=== PATIENT | male | born 1940 | race Caucasian/White ===

== ENCOUNTER → 2017-11-04 | Outpatient (CLI) | payer OTHER ==
[~2017-11-04] MED LIST: ADULT LOW DOSE81 MG; ADULT LOW DOSE81 MG PO; ALBUTEROL SULF8.5 GM INH; ANORO ELLIPTA1 EACH IH; ASPIR-TRIN325 MG PO; ASPIRIN325 PO; AZITHROMYCIN 2250 MG PO; CADUET 10 MG-21 EACH PO; CEFDINIR PO; CENTRUM SILVER1 EAC1 PO; CHERACOL COUGH120 ML PO; COENZYME Q1030 MG PO; COQ-10100 MG PO; DIOVAN HCT 1601 EACH PO; DUONEB 2.5-0.5 M3 ML INH; EFFIENT10 MG PO; FISH OIL 1,001000 M2 PO; FISHOIL PO; HYOSCYAMINE0.375 MG PO; KLOR-CON 1010 MEQ PO; LASIX 20 MG TAB20 MG PO; LEVAQUIN 500 M500 M2 PO; LEVOTHYROXIN0.112 M1; LEVOTHYROXIN0.125 M1 PO; LIDODERM 5%1 PATC1 TOP; LIVALO4 MG PO; LOSARTAN-HCTZ1 EAC2 PO; LYRICA 50 MG50 MG PO; MUCINEX TA600 MG/TA2 PO; NICOTINE TRANSD21 M1 TD; NORCO 5-325 TA1 EACH PO; NORVASC5 MG PO; OMEGA-31000 M1 PO; OMEPRAZOLE20 MG PO; PERCOCET 10-321 EACH PO; PERCOCET PO; PREDNISONE 10 M10 MG PO; PRILOSEC20 MG PO; PROMETHAZINE/C118 ML PO; ROXICODONE5 M2 PO; SINGULAIR 10 MG10 MG PO; SINGULAIR INH; SPIRIVA; SYNTHROID88 MCG PO; TRAZODONE HCL50 MG PO; UNICOMPLEX M TA1 TA1 PO; VITAMINC500 PO; VOLTAREN GEL 1100 G1 TOP
== END ==
LOC: RAD 08:53
DX: J18.9 Pneumonia, unspecified organism (principal); J44.9 Chronic obstructive pulmonary disease, unspecified; I10 Essential (primary) hypertension; I25.10 Atherosclerotic heart disease of native coronary artery without angina pectoris; E78.5 Hyperlipidemia, unspecified

== ENCOUNTER → 2019-09-10 | Outpatient (CLI) | payer OTHER | LOC: RAD 08:15 | DX: J43.0 Unilateral pulmonary emphysema [MacLeod's syndrome] (principal); J84.9 Interstitial pulmonary disease, unspecified ==

== ENCOUNTER → 2019-09-16 | Outpatient (CLI) | payer OTHER | LOC: CAT 07:35 | DX: K44.9 Diaphragmatic hernia without obstruction or gangrene (principal); J84.9 Interstitial pulmonary disease, unspecified; J43.8 Other emphysema; R91.8 Other nonspecific abnormal finding of lung field; K57.30 Diverticulosis of large intestine without perforation or abscess without bleeding; K80.20 Calculus of gallbladder without cholecystitis without obstruction ==

== ENCOUNTER → 2019-12-23 | Outpatient (CLI) | payer OTHER | LOC: SJCVCIMAG 08:07 | PROVIDERS: ATTEND Internal Medicine Cardiovascular Disease | DX: I65.23 Occlusion and stenosis of bilateral carotid arteries (principal); I73.9 Peripheral vascular disease, unspecified; F17.200 Nicotine dependence, unspecified, uncomplicated; Z95.820 Peripheral vascular angioplasty status with implants and grafts ==

== ENCOUNTER → 2019-12-24 | Outpatient (CLI) | payer OTHER | LOC: CAT 07:52 | PROVIDERS: ATTEND Internal Medicine | DX: J43.9 Emphysema, unspecified (principal); I70.0 Atherosclerosis of aorta; I25.10 Atherosclerotic heart disease of native coronary artery without angina pectoris; R91.8 Other nonspecific abnormal finding of lung field; J84.10 Pulmonary fibrosis, unspecified; K57.30 Diverticulosis of large intestine without perforation or abscess without bleeding; K44.9 Diaphragmatic hernia without obstruction or gangrene; J84.9 Interstitial pulmonary disease, unspecified ==

== ENCOUNTER → 2020-02-25 | Outpatient (CLI) | payer OTHER | LOC: SJCVCIMAG 07:39 | PROVIDERS: ATTEND Internal Medicine Cardiovascular Disease | DX: I25.10 Atherosclerotic heart disease of native coronary artery without angina pectoris (principal); I49.3 Ventricular premature depolarization; I51.7 Cardiomegaly; J44.9 Chronic obstructive pulmonary disease, unspecified; Z79.899 Other long term (current) drug therapy ==

== ENCOUNTER → 2020-08-26 | Outpatient (CLI) | payer OTHER | LOC: SJCVC 10:18 | PROVIDERS: ATTEND Internal Medicine Cardiovascular Disease | DX: I25.10 Atherosclerotic heart disease of native coronary artery without angina pectoris (principal); I10 Essential (primary) hypertension; E78.00 Pure hypercholesterolemia, unspecified; J44.9 Chronic obstructive pulmonary disease, unspecified; R06.00 Dyspnea, unspecified; I77.9 Disorder of arteries and arterioles, unspecified; I73.9 Peripheral vascular disease, unspecified; G62.9 Polyneuropathy, unspecified; F17.210 Nicotine dependence, cigarettes, uncomplicated; Z88.6 Allergy status to analgesic agent; Z79.899 Other long term (current) drug therapy ==

== ENCOUNTER → 2020-09-23 | Outpatient (CLI) | payer OTHER | LOC: CAT 08:46 | PROVIDERS: ATTEND Internal Medicine | DX: J43.9 Emphysema, unspecified (principal); J84.10 Pulmonary fibrosis, unspecified; R91.8 Other nonspecific abnormal finding of lung field; I25.10 Atherosclerotic heart disease of native coronary artery without angina pectoris; J98.4 Other disorders of lung; M25.78 Osteophyte, vertebrae ==

== ENCOUNTER → 2021-02-27 | Outpatient (CLI) | payer OTHER | LOC: SJCVCIMAG 08:33 | PROVIDERS: ATTEND Internal Medicine Cardiovascular Disease | DX: R94.31 Abnormal electrocardiogram [ECG] [EKG] (principal); I10 Essential (primary) hypertension; E78.00 Pure hypercholesterolemia, unspecified; I25.10 Atherosclerotic heart disease of native coronary artery without angina pectoris; J44.9 Chronic obstructive pulmonary disease, unspecified; E78.5 Hyperlipidemia, unspecified; I73.9 Peripheral vascular disease, unspecified; G62.9 Polyneuropathy, unspecified; F17.210 Nicotine dependence, cigarettes, uncomplicated; Z95.828 Presence of other vascular implants and grafts; Z79.899 Other long term (current) drug therapy; Z88.8 Allergy status to other drugs, medicaments and biological substances ==